=== PATIENT | female | born 1935 | race Caucasian/White ===

== ENCOUNTER 2017-03-16 09:53 | Outpatient (RCR) | payer MEDICARE, OTHER ==
[2016-09-02 13:57] VITALS: Ht 165.1 cm; Wt 74.6 kg
[~2017-03-16] VITALS: Ht 165.1 cm; Wt 74.6 kg
[~2017-03-16 09:53] MED LIST: ALLO-2 PO; ALPH200C2 PO; AMLO-1 PO; AMLO-104 PO; ANAS1TAB35 PO; ASPI-274 PO; BIOT1TAB12 PO; BISA-236 PR; CHOL10005 PO; CHOL100059 PO; CHOL200021 PO; CHRO1000 PO; CLON-327 PO; CLON1PAT23 TD; COM14R INH; CYAN1CRY PO; DILT60CA5 PO; EXE25PT PO; FURO20TA19 PO; GARL1CAP15 PO; GLIM2TAB42 PO; GLIM2TAB43 PO; GLIM4TAB49 PO; GLIP-137 PO; HCTZ25 PO; HYDR-3503 PO; HYDR-389 PO; HYDR50TA35 PO; INSU100C12 SQ; INSU100C14 SQ; LATA2.5D7 OP; LATOD OU; LETR2.5T4 PO; LEVO-85 PO; LIS20 PO; LISI-362 PO; MAGN250T26 PO; MAGN500C10 PO; MAGN800O2 PO; MET500 PO; METO-1 PO; METXL50 PO; MOM PO; NITT TD; OMEG500C5 PO; ONDA4SOL10 PO; ONDA4TAB PO; PANT20TA26 PO; PANT40SU3 PO; PIO15 PO; SITA50TA7 PO; TRI05T TP; UBID100C48 PO; VALS40TA6 PO; VITA-175 PO; VITA1CAP46 PO; VITA1CAP64 PO; WARF1TAB56 PO; WARF1TAB63 PO; WARF2.5T11 PO; WARF2TAB73 PO; WARF2TAB83 PO; ZOLP-1 PO; [UNRECOGNIZED DRUG - CODE] MC; [UNRECOGNIZED DRUG - CODE] PO
[2017-03-16 10:02] VITALS: BP 154/86
[2017-03-16 10:18] LABS: PLATELET COUNT, AUTOMATED 171 K/uL (150-450)
--- NOTE | 2017-03-16 18:15 | ONCOLOGY FOLLOW UP NOTE ---
EVENT DATE: March 16, 2017 DIAGNOSES 1. Stage I left breast cancer. 2. Atrial fibrillation. 3. Hypertension. 4. Gout. 5. History of deep vein thrombosis, right lower extremity x2. 6. Osteopenia. 7. Vitamin D deficiency. CHIEF COMPLAINT Patient is here today for followup of her left breast cancer. ONCOLOGY HISTORY The patient is an 81-year-old female who was found to have an abnormal mammogram during her annual screening mammography. The patient had left breast lumpectomy and sentinel node biopsy done on February 16, 2015. Pathology came back positive for 0.5 cm invasive ductal carcinoma with well-differentiated grade II/III. Four lymph nodes came back negative for metastasis. Lymphovascular invasion not observed. Margins were negative. ER positive 98.4% , IN positive 97.8%. HER2/laurent negative by immunohistochemistry and FISH. Ki- 67 was 0.4%. Tumor was staged as stage IA ([id number]). The patient refused adjuvant radiation therapy. She started adjuvant hormonal therapy with Letrozole 2.5 mg on March 2015. The patient stopped letrozole in July 2015 because of the development of allergic skin rash, felt to be due to medications. The patient started anastrozole 1 mg daily on December 24, 2015 as her insurance will not cover Aromasin. HISTORY OF PRESENT ILLNESS Patient is here today for followup of her left breast cancer. She is doing fine currently, except for easy bruising from the use of Coumadin, but denies any other symptoms. PAST MEDICAL HISTORY 1. Atrial fibrillation. 2. History of DVT of right lower extremity x2. 3. History of congestive heart failure. 4. History of diabetes mellitus. 5. Gout. 6. Hypertension. PAST SURGICAL HISTORY Surgery for fasciitis in 2004, tonsillectomy, hysterectomy with intact ovaries for fibroid, surgery for broken right hip. SOCIAL HISTORY The patient is a . She has two daughters and two sons. She is a homemaker. Denies any abuse of tobacco, alcohol or drugs. FAMILY HISTORY Mother had laryngeal cancer at the age of seventy-four. CURRENT MEDICATIONS 1. Fish oil 500 mg daily. 2. Biotin 1 mg daily. 3. Warfarin 2 mg Sunday//Sunday. 4. Allopurinol 300 mg daily. 5. NovoLog insulin 2 units subcutaneously at lunch. 6. Vitamin D3, 1000 units daily. 7. Vitamin B12, 1000 mcg daily. 8. Protonix 40 mg daily. 9. Amlodipine (Norvasc) 10 mg daily. 11. Coumadin 3 mg Sunday/Sunday/Sunday/Sunday; so she is taking 3 mg for four days per week and 2 mg four three days. 12. Lisinopril 10 mg daily. 13. Insulin, Novolog, 5 units subcutaneously every morning. 14. Lantus insulin 3 units subcutaneously at bedtime. 15. Amaryl 4 mg daily. 16. Lasix 20 mg daily. 17. Xalatan 0.005 % eye drops, each eye, at bedtime. 18. Dulcolax 10 mg suppository p.r.n. ALLERGIES The patient is allergic to KEFLEX and SITAGLIPTIN. REVIEW OF SYSTEMS CONSTITUTIONAL: No appetite or weight change. No fever, chills or sweating. No recent infection. HEENT: Ears: No tinnitus or hearing problem. Nose: No nasal discharge or epistaxis. Throat: No sore throat or mouth ulcers. Eyes: No diplopia or visual changes. RESPIRATORY: She has cough with expectoration. CARDIOVASCULAR: No chest pain, orthopnea, or paroxysmal nocturnal dyspnea (PND) . No edema. No palpitations. GASTROINTESTINAL: She has diarrhea lately from antibiotic therapy. GENITOURINARY: No hematuria or dysuria. MUSCULOSKELETAL: She has achy joints. 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 HEMATOLOGICAL: She bruises easily. SKIN: Her skin rash from letrozole nearly resolved. PSYCHIATRIC: No anxiety or depression. PHYSICAL EXAMINATION VITAL SIGNS: Blood pressure 154/86, pulse 75 per minute, respirations 16 per minute, temperature 97.6, pulse ox 94% on room air. GENERAL: Looks stable. Well-developed, well-nourished, and in no acute distress. HEENT: Head: Atraumatic. No sinus tenderness to palpation. Eyes: No icterus or conjunctivitis. Mouth and throat: No oral thrush or mucositis. NECK: Supple. No cervical or supraclavicular lymphadenopathy. LUNGS: Clear to auscultation and percussion bilaterally. HEART: Regular rate and rhythm. No gallops, murmurs, clicks or rubs. ABDOMEN: Soft and lax. No tenderness. No hepatosplenomegaly. No masses. EXTREMITIES: No cyanosis, clubbing or edema. LYMPHATICS: No peripheral lymphadenopathy. NEUROLOGICAL: Conscious, alert and oriented times three. No focal motor or sensory deficits. PSYCHIATRIC: Mood and affect appear normal. SKIN: There is a skin reaction which is papular in nature. The rash is itchy. DIAGNOSTIC DATA CBC shows a white count of 6.9, hemoglobin 14.6, hematocrit 42.7, platelet count 171,000. ASSESSMENT 1. Stage IA (pT1 pN0 cM0) left breast cancer status post lumpectomy and sentinel lymph node biopsy done February 16, 2015 for 0.5 cm invasive ductal carcinoma grade 2/3 with negative margins. Four lymph nodes were negative for metastasis. ER/IN positive, HER2/laurent negative. Ki-67 was 0.4%. Patient declined adjuvant radiation therapy. She started adjuvant hormonal therapy with Letrozole 2.5 mg on March 25, 2015, which was stopped June 18, 2015 because of the development of severe skin rash and severe itching. Her insurance did not cover for Aromasin and copayment was too high for her, so the patient started treatment with anastrozole on December 24, 2015, but she stopped the treatment because of the development of skin rash. We tried to get her Aromasin by the [employer] systems administrator, but unfortunately the patient was not eligible and she is currently not receiving any adjuvant hormonal therapy. Patient has a history of blood clotting, currently on Coumadin, and she is not a candidate for Tamoxifen because of increased risk of blood clotting. She is doing fine currently. I am planning to continue follow-up. I will see her again in three months with CBC, chem panel and CA 27-29. 2. Atrial fibrillation on Coumadin. 3. Hypertension, on treatment. 4. Gout, on allopurinol. 5. History of deep venous thrombosis, right lower extremity, times two. 6. Osteopenia with T score -1.8. Currently on vitamin D and calcium supplement. 7. Vitamin D deficiency, on vitamin D supplement 3000 units daily. PLAN 1. Continue followup. 2. Continue vitamin D 3000 units daily. 3. Patient to return in three months with CBC, chem panel and CA 27-29. 4. Patient is to contact us for any new concerns or complaints. [facility]
== END 2017-03-30 09:15 | disposition home or self-care (01) ==
LOC: SPU 09:53
PROVIDERS: ATTEND Internal Medicine Hematology
DX: Z85.3 Personal history of malignant neoplasm of breast (principal); I48.91 Unspecified atrial fibrillation; Z79.01 Long term (current) use of anticoagulants; I10 Essential (primary) hypertension; M10.9 Gout, unspecified; Z86.718 Personal history of other venous thrombosis and embolism; M85.80 Other specified disorders of bone density and structure, unspecified site; E55.9 Vitamin D deficiency, unspecified; Z79.899 Other long term (current) drug therapy; R05 Cough; R19.7 Diarrhea, unspecified
CPT/HCPCS: 36415; 85025; 86300; G0463; 82040; 82247; 82310; 82374; 82435; 82565; 82947; 84075; 84132; 84155; 84295; 84450; 84460; 84520; 99212

== ENCOUNTER → 2017-03-23 | Outpatient (CLI) | payer MEDICARE, OTHER ==
[2016-09-02 13:57] VITALS: BMI 27.6
--- NOTE | 2017-03-23 13:42 | RADIOLOGY IMAGING REPORT ---
FACILITY: [facility] - [place] PATIENT NAME: Margarita Zambrano : 1935 MR: [id number] V: [id number] EXAM DATE: ORDERING PHYSICIAN: YULY BLEDSOE TECHNOLOGIST: [place] [facility] [place] Margarita Zambrano : 1935 Visit/Account:[id number] Date of Sevice: 03/23/2017 KIDNEYS EXAMINATION: Renal ultrasound. History: Renal insufficiency, diabetic COMPARISON STUDIES: FINDINGS: Kidneys: Right kidney- right kidney measures 9.3 x 5.3 x 5.4 cm cm Left kidney- left kidney measures 10.7 x 5.9 x 5.5 cm cm Uniform and symmetric blood flow in each kidney by Doppler ultrasound. Hydronephrosis: none The resistive indices are slightly elevated in both kidneys measuring 0.88 on the right 0.84 and the left Bladder: Prevoid volume 120 mL. Post for residual 9 mL. Bilateral ureteral jets were identified Abdominal aorta and IVC: Aorta and IVC are patent by Doppler ultrasound. IMPRESSION: Mildly elevated resistive indices in both kidneys as described above Report Dictated By: Renu Bolton MD at 03/23/2017 1:38 PM Report E-Signed By: Renu Bolton MD at 03/23/2017 1:39 PM WSN:ANISA
== END ==
LOC: US 03:57
PROVIDERS: ATTEND Family Medicine
DX: N28.9 Disorder of kidney and ureter, unspecified (principal)
CPT/HCPCS: 76705

== ENCOUNTER → 2017-04-23 | Outpatient (CLI) | payer MEDICARE, OTHER ==
[2016-09-02 13:57] VITALS: BMI 27.6
[~2017-04-23] MED LIST changes: +WARF1TAB15 PO; -WARF1TAB63 PO
--- NOTE | 2017-04-24 14:07 | RADIOLOGY IMAGING REPORT ---
FACILITY: [facility] - [place] PATIENT NAME: BRETT EASLEY : [id number] MR: [id number] V: [id number] EXAM DATE: ORDERING PHYSICIAN: YULY BLEDSOE TECHNOLOGIST: Estrella Matias PROCEDURE:BILATERAL DIGITAL SCREENING MAMMOGRAM WITH CAD ASSISTED INTERPRETATION & 3D TOMOSYNTHESIS TECHNIQUE: Routine CC & MLO 3D tomographic images were obtained of both breasts. CAD was used. COMPARISON:Dating back to 2013 are available. BREAST DENSITY: There are scattered fibroglandular densities. INDICATIONS:SCREENING FINDINGS: Benign vascular calcifications are once again noted. There is no dominant mass, suspicious cluster of microcalcifications or persistent areas of architectural distortion. DIAGNOSTIC CATEGORY 1--NEGATIVE. RECOMMENDATIONS: ROUTINE MAMMOGRAM AND CLINICAL EVALUATION IN 1 YR IMPRESSION: BIRADS 1: Negative. Dictated by: John Hurt M.D. on 04/24/2017 at 9:21 Transcribed by: MARCIA on 04/24/2017 at 13:46 Approved by: John Hurt M.D. on 04/24/2017 at 14:06 [facility]
== END ==
LOC: MAMO 04-02 02:10
PROVIDERS: ATTEND Family Medicine
DX: Z12.31 Encounter for screening mammogram for malignant neoplasm of breast (principal)
CPT/HCPCS: 77063; 77067

== ENCOUNTER 2017-07-13 12:56 | Outpatient (RCR) | payer MEDICARE, OTHER ==
[2016-09-02 13:57] VITALS: Wt 72.0 kg
[2017-07-13 13:27] LABS: PLATELET COUNT, AUTOMATED 173 K/uL (150-450)
[2017-07-13 13:49] VITALS: BP 124/55
--- NOTE | 2017-07-13 16:21 | ONCOLOGY FOLLOW UP NOTE ---
EVENT DATE: July 13, 2017 DIAGNOSES 1. Stage I left breast cancer. 2. Atrial fibrillation. 3. Hypertension. 4. Gout. 5. History of deep vein thrombosis, right lower extremity x2. 6. Osteopenia. 7. Vitamin D deficiency. CHIEF COMPLAINT Patient is here today for followup of her left breast cancer. ONCOLOGY HISTORY The patient is an 81-year-old female who was found to have an abnormal mammogram during her annual screening mammography. The patient had left breast lumpectomy and sentinel node biopsy done on February 16, 2015. Pathology came back positive for 0.5 cm invasive ductal carcinoma with well-differentiated grade II/III. Four lymph nodes came back negative for metastasis. Lymphovascular invasion not observed. Margins were negative. ER positive 98.4% , SD positive 97.8%. HER2/laurent negative by immunohistochemistry and FISH. Ki- 67 was 0.4%. Tumor was staged as stage IA ([id number]). The patient refused adjuvant radiation therapy. She started adjuvant hormonal therapy with Letrozole 2.5 mg on March 2015. The patient stopped letrozole in July 2015 because of the development of allergic skin rash, felt to be due to medications. The patient started anastrozole 1 mg daily on December 24, 2015 as her insurance will not cover Aromasin. HISTORY OF PRESENT ILLNESS Patient is here today for followup of her left breast cancer. She is doing fine currently, except having musculoskeletal pain in her knees. She has numbness in her hands sometimes. She also bruises easily because of her Coumadin use. PAST MEDICAL HISTORY 1. Atrial fibrillation. 2. History of DVT of right lower extremity x2. 3. History of congestive heart failure. 4. History of diabetes mellitus. 5. Gout. 6. Hypertension. PAST SURGICAL HISTORY Surgery for fasciitis in 2004, tonsillectomy, hysterectomy with intact ovaries for fibroid, surgery for broken right hip. SOCIAL HISTORY The patient is a . She has two daughters and two sons. She is a homemaker. Denies any abuse of tobacco, alcohol or drugs. FAMILY HISTORY Mother had laryngeal cancer at the age of seventy-four. CURRENT MEDICATIONS 1. Fish oil 500 mg daily. 2. Biotin 1 mg daily. 3. Warfarin 2 mg Sunday//Sunday. 4. Allopurinol 300 mg daily. 5. NovoLog insulin 2 units subcutaneously at lunch. 6. Vitamin D3, 1000 units daily. 7. Vitamin B12, 1000 mcg daily. 8. Protonix 40 mg daily. 9. Amlodipine (Norvasc) 10 mg daily. 11. Coumadin 3 mg Sunday/Sunday/Sunday/Sunday; so she is taking 3 mg for four days per week and 2 mg four three days. 12. Lisinopril 10 mg daily. 13. Insulin, Novolog, 5 units subcutaneously every morning. 14. Lantus insulin 3 units subcutaneously at bedtime. 15. Amaryl 4 mg daily. 16. Lasix 20 mg daily. 17. Xalatan 0.005 % eye drops, each eye, at bedtime. 18. Dulcolax 10 mg suppository p.r.n. ALLERGIES 1. KEFLEX. 2. SITAGLIPTIN. REVIEW OF SYSTEMS CONSTITUTIONAL: No appetite or weight change. No fever, chills or sweating. No recent infection. HEENT: Ears: No tinnitus or hearing problem. Nose: No nasal discharge or epistaxis. Throat: No sore throat or mouth ulcers. Eyes: No diplopia or visual changes. RESPIRATORY: She has cough with expectoration. CARDIOVASCULAR: No chest pain, orthopnea, or paroxysmal nocturnal dyspnea (PND) . No edema. No palpitations. GASTROINTESTINAL: She has diarrhea lately from antibiotic therapy. GENITOURINARY: No hematuria or dysuria. MUSCULOSKELETAL: Patient has knee pains. NEUROLOGICAL: She has numbness in her hands. HEMATOLOGICAL: She bruises easily because she is using Coumadin. SKIN: Her skin rash from letrozole nearly resolved. PSYCHIATRIC: No anxiety or depression. PHYSICAL EXAMINATION VITAL SIGNS: Blood pressure 124/55, pulse 73 per minute, respirations 16 per minute, temperature 97.8, pulse ox 96% on room air. GENERAL: Looks stable. Well-developed, well-nourished, and in no acute distress. HEENT: Head: Atraumatic. No sinus tenderness to palpation. Eyes: No icterus or conjunctivitis. Mouth and throat: No oral thrush or mucositis. NECK: Supple. No cervical or supraclavicular lymphadenopathy. LUNGS: Clear to auscultation and percussion bilaterally. HEART: Regular rate and rhythm. No gallops, murmurs, clicks or rubs. ABDOMEN: Soft and lax. No tenderness. No hepatosplenomegaly. No masses. EXTREMITIES: No cyanosis, clubbing or edema. LYMPHATICS: No peripheral lymphadenopathy. NEUROLOGICAL: Conscious, alert and oriented times three. No focal motor or sensory deficits. PSYCHIATRIC: Mood and affect appear normal. SKIN: There is a skin reaction which is papular in nature. The rash is itchy. DIAGNOSTIC DATA CBC shows a white count of 6.7, hemoglobin 13.9, hematocrit 41.1, platelet count 173,000. Chem panel totally normal, except chloride 109, carbon dioxide 16, BUN 77, creatinine 1.5, blood sugar 149. CA 27-29 is pending. ASSESSMENT 1. Stage IA (pT1 pN0 cM0) left breast cancer status post lumpectomy and sentinel lymph node biopsy done February 16, 2015 for 0.5 cm invasive ductal carcinoma grade 2/3 with negative margins. Four lymph nodes were negative for metastasis. ER/SD positive, HER2/laurent negative. Ki-67 was 0.4%. Patient declined adjuvant radiation therapy. She started adjuvant hormonal therapy with Letrozole 2.5 mg on March 25, 2015, which was stopped June 18, 2015 because of the development of severe skin rash and severe itching. Her insurance did not cover for Aromasin and copayment was too high for her, so the patient started treatment with anastrozole on December 24, 2015, but she stopped the treatment because of the development of skin rash. We tried to get her Aromasin by the credentialer, but unfortunately the patient was not eligible and she is currently not receiving any adjuvant hormonal therapy. Patient currently on Coumadin for blood clotting and that is why she is not a candidate for Tamoxifen because of the increased risk of blood clotting. She is doing fine currently without any problem. I am planning to see her again in three months with CBC, chem panel and CA 27-29. 2. Atrial fibrillation on Coumadin. 3. Hypertension, on treatment. 4. Gout, on allopurinol. 5. History of deep venous thrombosis, right lower extremity, times two. 6. Osteopenia with T score -1.8. Currently on vitamin D and calcium supplement. 7. Vitamin D deficiency, on vitamin D supplement 3000 units daily. PLAN 1. Continue followup. 2. Continue vitamin D 3000 units daily. 3. Patient to return in three months with CBC, chem panel and CA 27-29. 4. Patient is to contact us for any new concern or complaints. [facility]
== END 2017-10-05 09:33 | disposition home or self-care (01) ==
LOC: SPU 12:56
PROVIDERS: ATTEND Internal Medicine Hematology
DX: C50.912 Malignant neoplasm of unspecified site of left female breast (principal); I48.91 Unspecified atrial fibrillation; Z79.01 Long term (current) use of anticoagulants; I10 Essential (primary) hypertension; M10.9 Gout, unspecified; Z86.718 Personal history of other venous thrombosis and embolism; M85.80 Other specified disorders of bone density and structure, unspecified site; E55.9 Vitamin D deficiency, unspecified; Z79.899 Other long term (current) drug therapy; E11.9 Type 2 diabetes mellitus without complications; Z79.4 Long term (current) use of insulin; R05 Cough; R19.7 Diarrhea, unspecified
CPT/HCPCS: 36415; 85025; 86300; G0463; 82040; 82247; 82310; 82374; 82435; 82565; 82947; 84075; 84132; 84155; 84295; 84450; 84460; 84520; 99212

== ENCOUNTER 2017-10-18 09:25 | Outpatient (RCR) | payer MEDICARE, OTHER ==
[2016-09-02 13:57] VITALS: Wt 73.3 kg
[~2017-10-18 09:25] MED LIST changes: +ANAS1TAB12 PO; -ANAS1TAB35 PO
[2017-10-18 09:36] VITALS: BP 143/64
[2017-10-18 09:51] LABS: PLATELET COUNT, AUTOMATED 157 K/uL (150-450)
--- NOTE | 2017-10-18 12:06 | EL-TAR[facility] ONCOLOGY NOTE ---
EVENT DATE: October 18, 2017 DIAGNOSES 1. Stage I left breast cancer. 2. Atrial fibrillation. 3. Hypertension. 4. Gout. 5. History of deep vein thrombosis, right lower extremity x2. 6. Osteopenia. 7. Vitamin D deficiency. CHIEF COMPLAINT Patient is here today for followup of her left breast cancer. ONCOLOGY HISTORY The patient is an 82-year-old female who was found to have an abnormal mammogram during her annual screening mammography. The patient had left breast lumpectomy and sentinel node biopsy done on February 16, 2015. Pathology came back positive for 0.5 cm invasive ductal carcinoma with well-differentiated grade II/III. Four lymph nodes came back negative for metastasis. Lymphovascular invasion not observed. Margins were negative. ER positive 98.4% , MI positive 97.8%. HER2/laurent negative by immunohistochemistry and FISH. Ki- 67 was 0.4%. Tumor was staged as stage IA ([id number]). The patient refused adjuvant radiation therapy. She started adjuvant hormonal therapy with Letrozole 2.5 mg on March 2015. The patient stopped letrozole in July 2015 because of the development of allergic skin rash, felt to be due to medications. The patient started anastrozole 1 mg daily on December 24, 2015 as her insurance will not cover Aromasin. HISTORY OF PRESENT ILLNESS Patient is here today for followup of her left breast cancer. She is doing fine currently except having right knee pain from arthritis. She has some tingling in the fingers sometimes. She bruises easily but she is on Coumadin. PAST MEDICAL HISTORY 1. Atrial fibrillation. 2. History of DVT of right lower extremity x2. 3. History of congestive heart failure. 4. History of diabetes mellitus. 5. Gout. 6. Hypertension. PAST SURGICAL HISTORY Surgery for fasciitis in 2004, tonsillectomy, hysterectomy with intact ovaries for fibroid, surgery for broken right hip. SOCIAL HISTORY The patient is a . She has two daughters and two sons. She is a homemaker. Denies any abuse of tobacco, alcohol or drugs. FAMILY HISTORY Mother had laryngeal cancer at the age of seventy-four. CURRENT MEDICATIONS 1. Fish oil 500 mg daily. 2. Biotin 1 mg daily. 3. Warfarin 2 mg Sunday//Sunday. 4. Allopurinol 300 mg daily. 5. NovoLog insulin 2 units subcutaneously at lunch. 6. Vitamin D3, 1000 units daily. 7. Vitamin B12, 1000 mcg daily. 8. Protonix 40 mg daily. 9. Amlodipine (Norvasc) 10 mg daily. 11. Coumadin 3 mg Sunday/Sunday/Sunday/Sunday; so she is taking 3 mg for four days per week and 2 mg four three days. 12. Lisinopril 10 mg daily. 13. Insulin, Novolog, 5 units subcutaneously every morning. 14. Lantus insulin 3 units subcutaneously at bedtime. 15. Amaryl 4 mg daily. 16. Lasix 20 mg daily. 17. Xalatan 0.005 % eye drops, each eye, at bedtime. 18. Dulcolax 10 mg suppository p.r.n. ALLERGIES 1. KEFLEX. 2. SITAGLIPTIN. REVIEW OF SYSTEMS CONSTITUTIONAL: No appetite or weight change. No fever, chills or sweating. No recent infection. HEENT: Ears: No tinnitus or hearing problem. Nose: No nasal discharge or epistaxis. Throat: No sore throat or mouth ulcers. Eyes: No diplopia or visual changes. RESPIRATORY: No shortness of breath. No cough, expectoration or hemoptysis. CARDIOVASCULAR: No chest pain, orthopnea, or paroxysmal nocturnal dyspnea (PND) . No edema. No palpitations. GASTROINTESTINAL: No nausea or vomiting. No diarrhea or constipation. No change in bowel movements. No heartburn or swallowing difficulties. No abdominal pain. No jaundice. No hematemesis, melena or rectal bleeding. GENITOURINARY: No hematuria or dysuria. MUSCULOSKELETAL: She has pain in the right knee from arthritis. NEUROLOGICAL: She has tingling in the fingers occasionally. HEMATOLOGIC/LYMPHATIC: She bruises easily but she is using Coumadin. SKIN: No skin rash or lumps. PSYCHIATRIC: No anxiety or depression. PHYSICAL EXAMINATION GENERAL: Looks stable. Well-developed, well-nourished, and in no acute distress. VITAL SIGNS: Blood pressure 143/64, pulse 88 per minute, respirations 16 per minute, temperature 97.8, pulse oximetry 93% on room air. HEENT: Head: Atraumatic. No sinus tenderness to palpation. Eyes: No icterus or conjunctivitis. Mouth and throat: No oral thrush or mucositis. NECK: Supple. No cervical or supraclavicular lymphadenopathy. LUNGS: Clear to auscultation and percussion bilaterally. HEART: Regular rate and rhythm. No gallops, murmurs, clicks or rubs. ABDOMEN: Soft and lax. No tenderness. No hepatosplenomegaly. No masses. EXTREMITIES: No cyanosis, clubbing or edema. LYMPHATICS: No peripheral lymphadenopathy. NEUROLOGICAL: Conscious, alert and oriented times three. No focal motor or sensory deficits. PSYCHIATRIC: Mood and affect appear normal. SKIN: No skin rash, bruise or purpuric eruption. DIAGNOSTIC DATA CBC shows a white count of 7.4, hemoglobin 14.6, hematocrit 41.9, platelet count 157,000. Chem panel and CA 27-29 are pending. ASSESSMENT 1. Stage IA (pT1 pN0 cM0) left breast cancer status post lumpectomy and sentinel lymph node biopsy done February 16, 2015 for 0.5 cm invasive ductal carcinoma grade 2/3 with negative margins. Four lymph nodes were negative for metastasis. ER/MI positive, HER2/laurent negative. Ki-67 was 0.4%. Patient declined adjuvant radiation therapy. She started adjuvant hormonal therapy with Letrozole 2.5 mg on March 25, 2015, which was stopped June 18, 2015 because of the development of severe skin rash and severe itching. Her insurance did not cover for Aromasin and copayment was too high for her, so the patient started treatment with anastrozole on December 24, 2015, but she stopped the treatment because of the development of skin rash. We tried to get her Aromasin by the branch account executive, but unfortunately the patient was not eligible and she is currently not receiving any adjuvant hormonal therapy. She is also using Coumadin for blood clotting and Tamoxifen is not indicated in her case for this reason. She is currently doing very well. I am planning to continue follow up. I will see her in three months with CBC, chem panel and CA 27-29. After the next visit, we will start to see her every four months as the patient will complete three years since her diagnosis next visit. 2. Atrial fibrillation, on Coumadin. 3. Hypertension, on treatment. 4. Gout, on allopurinol. 5. History of deep venous thrombosis of right lower extremity x2, on Coumadin. 6. Osteopenia with T score -1.8. Currently on vitamin D and calcium supplement. 7. Vitamin D deficiency, on vitamin D supplement 3000 units daily. PLAN 1. Continue followup. 2. Continue vitamin D 3000 units daily. 3. Patient to return in three months with CBC, chem panel and CA 27-29. 4. Patient is to contact us for any new concern or complaints. [facility]
== END 2018-01-15 ==
LOC: SPU 09:25
PROVIDERS: ATTEND Internal Medicine Hematology
DX: C50.912 Malignant neoplasm of unspecified site of left female breast (principal); I48.91 Unspecified atrial fibrillation; Z79.01 Long term (current) use of anticoagulants; I10 Essential (primary) hypertension; M10.9 Gout, unspecified; Z86.718 Personal history of other venous thrombosis and embolism; M85.80 Other specified disorders of bone density and structure, unspecified site; E55.9 Vitamin D deficiency, unspecified; Z79.899 Other long term (current) drug therapy; E11.9 Type 2 diabetes mellitus without complications; Z79.4 Long term (current) use of insulin; R05 Cough; R19.7 Diarrhea, unspecified
CPT/HCPCS: 36415; 85025; 86300; G0463; 82040; 82247; 82310; 82374; 82435; 82565; 82947; 84075; 84132; 84155; 84295; 84450; 84460; 84520; 99212

== ENCOUNTER 2018-01-17 10:30 | Outpatient (RCR) | payer MEDICARE, OTHER ==
[2016-09-02 13:57] VITALS: BMI 27.6
[2018-01-17 10:55] LABS: PLATELET COUNT, AUTOMATED 193 K/uL (150-450)
[2018-01-17 11:04] VITALS: BP 164/86
[2018-01-17 11:42] VITALS: BP 164/86
--- NOTE | 2018-01-18 21:18 | ONCOLOGY FOLLOW UP NOTE ---
EVENT DATE: January 17, 2018 CHIEF COMPLAINT Follow up for stage IA breast cancer. HISTORY OF PRESENT ILLNESS Patient is an 82-year-old female who was seen today in followup for stage IA breast cancer. Unfortunately, she was unable to tolerate the aromatase inhibitors as she had significant rash with both LETROZOLE and ANASTROZOLE. Exemestane was not covered by her insurance. Thankfully, she has had no recurrence of disease. She generally feels well. She does have some right knee pain, but defers going for a knee replacement. She received her flu shot in November. She will follow up with Dr. Mathews next week. She denies any other significant complaints. MEDICAL HISTORY 1. Atrial fibrillation. 2. History of DVT of right lower extremity x2. 3. History of congestive heart failure. 4. Type 2 diabetes. 5. Gout. 6. Hypertension. 7. Chronic renal insufficiency. SURGICAL HISTORY 1. Left lumpectomy, February 2015. 2. Surgery for fasciitis, 2004. 3. Tonsillectomy. 4. Hysterectomy with intact ovaries for fibroid. 5. ORIF of right hip. SOCIAL HISTORY The patient is a . She has two daughters and two sons. She is a homemaker. Denies any abuse of tobacco, alcohol, or drugs. FAMILY HISTORY Mother had laryngeal cancer at the age of 74. MEDICATIONS 1. Warfarin 2 mg (managed per Dr. Mathews). 2. Magnesium oxide 500 mg daily. 3. Vitamin B complex daily. 4. Vitamin D3, 3000 International Units daily. 5. Lisinopril 10 mg daily. 6. Furosemide 20 mg daily. 7. Glimepiride 4 mg daily (patient is taking this p.r.n.). 8. Xalatan 0.005% eye drops. ALLERGIES 1. KEFLEX. 2. SITAGLIPTIN. REVIEW OF SYSTEMS A 12-point review of systems is performed and is negative except as stated above. PHYSICAL EXAMINATION VITAL SIGNS: Blood pressure 164/86, pulse 96, respirations 18, temp 97.8, O2 sat 91%. GENERAL: Patient is a well-developed, well-nourished female in no acute distress. HEAD: Normocephalic, atraumatic. EYES: Sclerae anicteric. MOUTH: Moist mucous membranes without lesions. NECK: Supple. No masses. LYMPHATICS: No palpable adenopathy. BREASTS: Status post left lumpectomy with well-healed incision. No evidence of recurrence. Right breast is without masses. LUNGS: Clear bilaterally. CARDIOVASCULAR: Heart rate slightly irregular with a grade 2 murmur. ABDOMEN: Soft, nontender, with active bowel sounds. EXTREMITIES: No edema. NEUROLOGIC: Nonfocal. LABORATORIES CBC today reveals a WBC of 7.0, hemoglobin 15.3, hematocrit 46.9, platelets 193,000. CMP is within normal limits except for a BUN of 75, creatinine 1.6, random glucose 198. IMPRESSION AND PLAN The patient is an 82-year-old female with: 1. Stage IA left breast cancer, status post left lumpectomy. Unable to tolerate AROMATASE INHIBITOR therapy due to significant rash. No signs or symptoms of disease recurrence. Tamoxifen was not prescribed as she has had issues with blood clotting. 2. Atrial fibrillation. Heart rate is slightly irregular today. She continues on Coumadin and tells me that this has been well controlled. 3. Hypertension. Continue lisinopril and Lasix. 4. Vitamin D deficiency. Continue vitamin D3 3000 International Units daily. 5. Type 2 diabetes. Patient relates that she has not been taking her glimepiride on a regular basis. She previously was on insulin, but is not on this any longer. She will follow up with Dr. Mathews next week. 6. Breast surveillance. Bilateral mammogram on 04/23/17 was BIRADS category 1. This will be repeated in April 2018. Patient relates that Dr. Mathews will order this. 7. Chronic renal insufficiency. Reviewed labs. BUN and creatinine today were 75 and 1.6 respectively. On review, these have been stable over the past two years. 8. Follow up with Dr. Olmos in six months for continued care. CBC, CMP, and CA27.29 will be repeated at that time. cc: Yoli BURKS
== END 2018-02-11 09:32 | disposition home or self-care (01) ==
LOC: SPU 10:30
PROVIDERS: ATTEND Internal Medicine Hematology
DX: C50.912 Malignant neoplasm of unspecified site of left female breast (principal); I48.91 Unspecified atrial fibrillation; Z79.01 Long term (current) use of anticoagulants; I10 Essential (primary) hypertension; M10.9 Gout, unspecified; Z86.718 Personal history of other venous thrombosis and embolism; M85.80 Other specified disorders of bone density and structure, unspecified site; E55.9 Vitamin D deficiency, unspecified; Z79.899 Other long term (current) drug therapy; E11.9 Type 2 diabetes mellitus without complications; Z79.4 Long term (current) use of insulin; R05 Cough; R19.7 Diarrhea, unspecified
CPT/HCPCS: 36415; 85025; 86300; G0463; 82040; 82247; 82310; 82374; 82435; 82565; 82947; 84075; 84132; 84155; 84295; 84450; 84460; 84520; 99212

== ENCOUNTER 2018-05-08 20:52 | Emergency (ER) | payer MEDICARE, OTHER ==
[2016-09-02 13:57] VITALS: Wt 74.0 kg
[2018-05-08] MEDS ORDERED: GLIM4TAB50 PO (21:37)
[2018-05-08] MEDS ORDERED: ALB6.7R INH (21:39)
--- NOTE | 2018-05-08 21:45 | ER Report ---
History and Physical Time Seen By MD: 21:44 Hx. of Stated Complaint: fell at approximately 10pm last night. called someone at 6:30pm tonight about it. has been laying on floor most of that time. family states she has not anything to eat or drink in that time, has a lot of bruises. has a lot of redness to right hand she thinks is gout (DEB PACKER MD) HPI/ROS CHIEF COMPLAINT: Fall, arm and knee pain HISTORY OF PRESENT ILLNESS: This is an 82-year-old female. Yesterday, she been having a few days of redness and inflammation in the right arm. She was sitting on the toilet last night or early in the morning and was unable to get up from the toilet because of the pain and weakness in her arm. She ended up "diving "off the toilet onto the floor and then ended up on the floor for most of the day today. She finally was able to call family who came to get her. She has some pain in the right knee from the fall. Still has pain in the right wrist and forearm area with some redness and warmth of the skin in these areas. Denies any fevers or chills. She has no other pain and did not hit her head and has no neck or back pain. She has not had much to drink and is feeling very dehydrated at this time. (DEB PACKER MD) Allergies: Coded Allergies: Cephalexin Monohydrate (Verified Allergy, Unknown, 05/08/18) sitagliptin phosphate (Verified Adverse Reaction, Intermediate, ITCHING, 05/08/18) dizziness Home Meds Active Scripts Warfarin Sodium (JANTOVEN) 2 Mg Tablet, 2 MG PO DAILY@1300, #30 TAB Prov:MILLI,BRITTANY CHANG 09/05/16 Reported Medications Albuterol Sulfate (PROVENTIL HFA) 6.7 Gm Inh, 1-2 PUFF INH 3-4XD, INH 05/08/18 Glimepiride (GLIMEPIRIDE) 4 Mg Tablet, 4 MG PO QDAY 05/08/18 Magnesium Oxide (MAGNESIUM) 500 Mg Capsule, 500 MG PO DAILY, CAPSULE 09/14/16 Vitamin B Complex (B COMPLEX) 1 Each Tablet, 1 EACH PO DAILY 09/14/16 Cholecalciferol (Vitamin D3) (VITAMIN D3) 1,000 Unit Tablet, 4000 UNIT PO, TAB 09/14/16 Lisinopril (LISINOPRIL) 10 Mg Tablet, 10 MG PO QDAY, TAB 09/14/16 Furosemide (LASIX) 20 Mg Tablet, 40 MG PO QDAY, #3 0 Refills TAKE ONE tablet daily 08/29/12 Reviewed Nurses Notes: Yes (DEB PACKER MD) Hx Smoking: No Smoking Status: Never Smoker Exposure to Second Hand Smoke?: Yes Hx Substance Use Disorder: No Hx Alcohol Use: No (DEB PACEKR MD) Constitutional Vital Sign - Last 24 Hours 05/08/18 05/08/18 05/08/18 05/08/18 21:30 21:31 21:32 21:37 Temp 98.3 Pulse 79 ??? 74 Resp 16 B/P (MAP) 146/94 146/94 (111) Pulse Ox 88 92 O2 Delivery Room Air 05/08/18 05/08/18 05/08/18 05/08/18 21:42 21:45 21:47 21:52 Pulse 76 73 79 B/P (MAP) 134/63 (86) Pulse Ox 92 92 93 05/08/18 05/08/18 05/08/18 05/08/18 21:57 22:00 22:02 22:07 Pulse 74 76 82 B/P (MAP) 123/74 (90) Pulse Ox 93 93 93 05/08/18 05/08/18 05/08/18 05/08/18 22:12 22:15 22:17 22:22 Pulse 82 75 77 B/P (MAP) 105/66 (79) Pulse Ox 91 93 93 05/08/18 05/08/18 05/08/18 05/08/18 22:42 22:47 22:52 23:07 Pulse 78 76 75 73 Pulse Ox 93 93 92 90 05/08/18 05/08/18 05/08/18 05/08/18 23:22 23:37 23:52 23:57 Pulse 74 72 76 72 Pulse Ox 89 89 91 93 05/09/18 05/09/18 05/09/18 05/09/18 00:12 00:42 00:47 00:52 Pulse 75 97 79 ??? Pulse Ox 91 92 92 05/09/18 05/09/18 05/09/18 05/09/18 01:07 01:22 01:52 02:22 Pulse ? 05/09/18 05/09/18 05/09/18 05/09/18 02:32 02:37 02:50 02:55 Pulse ? B/P (MAP) 102/70 (81) 05/09/18 05/09/18 05/09/18 05/09/18 03:00 03:10 03:15 03:25 Pulse ? B/P (MAP) 126/70 (88) 118/67 (84) 05/09/18 05/09/18 05/09/18 05/09/18 03:30 03:45 04:00 04:05 Pulse ??? B/P (MAP) 121/53 (75) 133/59 (83) 103/78 (86) 05/09/18 05/09/18 05/09/18 05/09/18 04:15 04:20 04:30 04:35 Pulse ? B/P (MAP) 128/72 (90) 121/66 (84) 05/09/18 05/09/18 05/09/18 05/09/18 04:45 04:50 05:00 05:15 Pulse ??? B/P (MAP) 119/59 (79) 120/59 (79) 121/56 (77) 05/09/18 05/09/18 05/09/18 05/09/18 05:20 05:30 05:35 05:45 Pulse ? B/P (MAP) 120/74 (89) 119/71 (87) 05/09/18 05/09/18 05/09/18 05/09/18 06:00 06:15 06:30 06:45 B/P (MAP) 120/75 (90) 124/62 (82) 129/73 (91) 120/59 (79) 05/09/18 05/09/18 05/09/18 05/09/18 07:00 07:15 07:30 07:45 B/P (MAP) 127/59 (81) 116/67 (83) 126/69 (88) 121/63 (82) 05/09/18 05/09/18 05/09/18 05/09/18 08:00 08:15 08:30 08:45 B/P (MAP) 117/64 (81) 114/93 (100) 114/65 (81) 120/68 (85) Intake and Output0 05/08/18 05/08/18 05/09/18 15:00 23:00 07:00 Intake Total 2000 ml Balance 2000 ml (RIMA GALLOWAY MD) Physical Exam General Appearance: The patient is alert. No acute distress. She is smiling and joking around with us in the ER tonight. Eyes: Pupils are equal, round. No pallor, injection or icterus. ENT: Mucous membranes are dry. Posterior oropharynx and oral mucosa is normal. Neck: Supple and non tender. Respiratory: Lungs are clear to auscultation. Cardiovascular: Regular rate and rhythm. No murmurs, gallops or rubs. Normal capillary refill. Does have some lower extremity trace edema bilateral. Gastrointestinal: Abdomen is soft and non tender. Nondistended. Normal active bowel sounds. No costovertebral angle tenderness with percussion. Neurological: Alert and oriented x3. Generalized weakness but no focal neurologic deficits noted. Skin: Warm and dry. Her right wrist and forearm up to the elbow has pain. There is redness and warmth at the wrist and also redness and warmth at the elbow. Musculoskeletal: She has some pain diffusely throughout the right knee. No pain in the spine or back. DIFFERENTIAL DIAGNOSIS: After history and physical exam, differential diagnosis was considered for patient who fell off the toilet, questionable if there is injury in the knee or not. Also with redness and warmth in the wrist and elbow of the right arm, concerning for possible gout versus infection. Also worry about prolonged time on the floor and dehydration with rhabdomyolysis. (RUSTDEB MD) Medical Decision Making Data Points Result Diagram: 05/09/18 0619 05/09/18 0619 Laboratory Hematology Test 05/08/18 22:39 05/08/18 22:54 05/09/18 06:19 Urine Color Yellow Urine Clarity Slightly-cloudy Urine pH 5.0 pH (4.8-9.5) Urine Specific [place]ee[place] 1.021 Urine Protein 100 mg/dL (NEGATIVE) Urine Glucose (UA) Negative mg/dL (NEGATIVE) Urine Ketones Negative mg/dL (NEGATIVE) Urine Blood Moderate (NEGATIVE) Urine Nitrite Negative (NEGATIVE) Urine Bilirubin Negative (NEGATIVE) Urine Urobilinogen Negative mg/dL (0.2-1.9) Urine Leukocyte Esterase Negative (NEGATIVE) Urine RBC 4 /HPF (0-2/HPF) Urine WBC 1 /HPF (0-5/HPF) Urine Squamous Epithelial Cells Many /LPF (</=FEW) Urine Bacteria Negative /HPF (NONE-FEW) Urine Hyaline Casts Few /LPF (NONE-FEW) Urine Mucus None /HPF (NONE-FEW) Erythrocyte Sedimentation Rate 80 mm/HOUR (0-30) Prothrombin Time 20.9 seconds (12.0-14.4) Prothromb Time International Ratio 1.78 Uric Acid 9.6 mg/dl (2.5-7.5) Red Blood Count 4.64 M/uL (4.17-5.56) Mean Corpuscular Volume 85.9 fL (80.0-96.0) Mean Corpuscular Hemoglobin 28.2 pg (26.0-33.0) Mean Corpuscular Hemoglobin Concent 32.8 g/dL (32.0-36.0) Red Cell Distribution Width 15.0 % (11.5-14.5) Mean Platelet Volume 7.7 fL (7.2-11.1) Neutrophils (%) (Auto) 94.7 % (39.4-72.5) Lymphocytes (%) (Auto) 3.2 % (17.6-49.6) Monocytes (%) (Auto) 1.8 % (4.1-12.4) Eosinophils (%) (Auto) 0.1 % (0.4-6.7) Basophils (%) (Auto) 0.2 % (0.3-1.4) Nucleated RBC Relative Count (auto) 0.0 /100WBC Neutrophils # (Auto) 9.4 K/uL (2.0-7.4) Lymphocytes # (Auto) 0.3 K/uL (1.3-3.6) Monocytes # (Auto) 0.2 K/uL (0.3-1.0) Eosinophils # (Auto) 0.0 K/uL (0.0-0.5) Basophils # (Auto) 0.0 K/uL (0.0-0.1) Nucleated RBC Absolute Count (auto) 0.00 K/uL Sodium Level 137 mmol/L (137-145) Potassium Level 4.7 mmol/L (3.5-5.0) Chloride Level 110 mmol/L (98-107) Carbon Dioxide Level 15 mmol/L (22-31) Blood Urea Nitrogen 60 mg/dl (7-18) Creatinine 1.30 mg/dl (0.52-1.04) Glomerular Filtration Rate Calc 39.0 Random Glucose 173 mg/dl (75-110) Calcium Level 8.3 mg/dl (8.4-10.2) Total Bilirubin 1.5 mg/dl (0.2-1.3) Aspartate Amino Transf (AST/SGOT) 80 U/L (0-35) Alanine Aminotransferase (ALT/SGPT) 43 U/L (0-56) Alkaline Phosphatase 83 U/L (0-126) Total Creatine Kinase 768 U/L (30-135) Total Protein 5.7 g/dl (6.3-8.2) Albumin 3.1 g/dl (3.5-5.0) Chemistry Test 05/08/18 22:39 05/08/18 22:54 05/09/18 06:19 Urine Color Yellow Urine Clarity Slightly-cloudy Urine pH 5.0 pH (4.8-9.5) Urine Specific Peebles 1.021 Urine Protein 100 mg/dL (NEGATIVE) Urine Glucose (UA) Negative mg/dL (NEGATIVE) Urine Ketones Negative mg/dL (NEGATIVE) Urine Blood Moderate (NEGATIVE) Urine Nitrite Negative (NEGATIVE) Urine Bilirubin Negative (NEGATIVE) Urine Urobilinogen Negative mg/dL (0.2-1.9) Urine Leukocyte Esterase Negative (NEGATIVE) Urine RBC 4 /HPF (0-2/HPF) Urine WBC 1 /HPF (0-5/HPF) Urine Squamous Epithelial Cells Many /LPF (</=FEW) Urine Bacteria Negative /HPF (NONE-FEW) Urine Hyaline Casts Few /LPF (NONE-FEW) Urine Mucus None /HPF (NONE-FEW) Erythrocyte Sedimentation Rate 80 mm/HOUR (0-30) Prothrombin Time 20.9 seconds (12.0-14.4) Prothromb Time International Ratio 1.78 Uric Acid 9.6 mg/dl (2.5-7.5) White Blood Count 10.0 k/uL (4.5-11.0) Red Blood Count 4.64 M/uL (4.17-5.56) Hemoglobin 13.1 g/dL (12.0-16.0) Hematocrit 39.9 % (34.0-47.0) Mean Corpuscular Volume 85.9 fL (80.0-96.0) Mean Corpuscular Hemoglobin 28.2 pg (26.0-33.0) Mean Corpuscular Hemoglobin Concent 32.8 g/dL (32.0-36.0) Red Cell Distribution Width 15.0 % (11.5-14.5) Platelet Count 188 K/uL (150-450) Mean Platelet Volume 7.7 fL (7.2-11.1) Neutrophils (%) (Auto) 94.7 % (39.4-72.5) Lymphocytes (%) (Auto) 3.2 % (17.6-49.6) Monocytes (%) (Auto) 1.8 % (4.1-12.4) Eosinophils (%) (Auto) 0.1 % (0.4-6.7) Basophils (%) (Auto) 0.2 % (0.3-1.4) Nucleated RBC Relative Count (auto) 0.0 /100WBC Neutrophils # (Auto) 9.4 K/uL (2.0-7.4) Lymphocytes # (Auto) 0.3 K/uL (1.3-3.6) Monocytes # (Auto) 0.2 K/uL (0.3-1.0) Eosinophils # (Auto) 0.0 K/uL (0.0-0.5) Basophils # (Auto) 0.0 K/uL (0.0-0.1) Nucleated RBC Absolute Count (auto) 0.00 K/uL Glomerular Filtration Rate Calc 39.0 Calcium Level 8.3 mg/dl (8.4-10.2) Total Bilirubin 1.5 mg/dl (0.2-1.3) Aspartate Amino Transf (AST/SGOT) 80 U/L (0-35) Alanine Aminotransferase (ALT/SGPT) 43 U/L (0-56) Alkaline Phosphatase 83 U/L (0-126) Total Creatine Kinase 768 U/L (30-135) Total Protein 5.7 g/dl (6.3-8.2) Albumin 3.1 g/dl (3.5-5.0) Coagulation Test 05/08/18 22:54 Prothrombin Time 20.9 seconds Prothromb Time International Ratio 1.78 Urinalysis Test 05/08/18 22:39 Urine Color Yellow Urine Clarity Slightly-cloudy Urine pH 5.0 pH (4.8-9.5) Urine Specific [place]ee[place] 1.021 Urine Protein 100 mg/dL (NEGATIVE) Urine Glucose (UA) Negative mg/dL (NEGATIVE) Urine Ketones Negative mg/dL (NEGATIVE) Urine Blood Moderate (NEGATIVE) Urine Nitrite Negative (NEGATIVE) Urine Bilirubin Negative (NEGATIVE) Urine Urobilinogen Negative mg/dL (0.2-1.9) Urine Leukocyte Esterase Negative (NEGATIVE) Urine RBC 4 /HPF (0-2/HPF) Urine WBC 1 /HPF (0-5/HPF) Urine Squamous Epithelial Cells Many /LPF (</=FEW) Urine Bacteria Negative /HPF (NONE-FEW) Urine Hyaline Casts Few /LPF (NONE-FEW) Urine Mucus None /HPF (NONE-FEW) (RIMA GALLOWAY MD) ED Course/Re-evaluation Clinical Indication for ER IV: Hydration, IV Access Decision to Disposition Date: May 08, 2018 Decision to Disposition Time: 23:52 (DEB PACKER MD) ED Course 05/09/2018 9:25:54 am physical therapy assessment was done. Please see their report for details. I observed the patient ambulating with walker with no wendy tance. The patient is able to be discharged home with close follow-up and home health. Recommend a commode at the bedside along with 4 point walker. Decision to Disposition Date: May 09, 2018 Decision to Disposition Time: 10:00 (RIMA GALLOWAY MD) Depart Departure Latest Vital Signs Vital Signs Date Time Temp Pulse Resp B/P (MAP) Pulse Ox O2 Delivery O2 Flow Rate FiO2 05/09/18 08:45 120/68 (85) 05/09/18 05:35 ??? 05/09/18 00:52 92 05/08/18 21:30 98.3 16 Room Air (RIMA GALLOWAY MD) Impression: Primary Impression: Ambulatory dysfunction Condition: Improved Disposition: HOME OR SELF-CARE Referrals: YULY BLEDSOE DO (PCP) 2 Days for reassessment of ambulation Patient Instructions: Fall Prevention (ED), How to Choose and Use a Walker (GEN) DEB PACKER MD May 08, 2018 21:45 RIMA GALLOWAY MD May 09, 2018 09:28
[2018-05-08] MEDS ORDERED: NS(*) 0.9% 1000 ML BAG 1,000 ML IV ONE (22:25)
[2018-05-08 23:12] LABS: PLATELET COUNT, AUTOMATED 222 K/uL (150-450)
[2018-05-09] MEDS ORDERED: predniSONE 20 MG TAB PO ONE (00:35)
[2018-05-09] MEDS ORDERED: NS(*) 0.9% 1000 ML BAG 1,000 ML IV ONE (00:35)
[2018-05-09] MEDS ORDERED: AMOX/CLAV 875 MG TAB PO ONE (00:35)
[2018-05-09 01:53] LABS: INR 1.78
--- NOTE | 2018-05-09 03:28 | RADIOLOGY IMAGING REPORT ---
FACILITY: [facility] - [place] PATIENT NAME: Margarita Zambrano : 1935 MR: [id number] V: [id number] EXAM DATE: ORDERING PHYSICIAN: DEB PACKER TECHNOLOGIST: Location: [facility] - [place] Patient: Margarita Zambrano : 1935 Visit/Account:[id number] Date of Sevice: 05/09/2018 INDICATION: Fall, right knee pain. EXAM DATE: 05/09/2018 1:37 AM COMPARISON: None. FINDINGS: 3 views right knee. Mineralization is low. No apparent acute alignment abnormality or fracture. Mult ifocal osteoarthrosis that is mild at the lateral compartment, moderate of the medial compartment and moderate at the patellofemoral joint greatest along the medial facet. Probable joint effusion. Vas cular calcifications. IMPRESSION: Probable joint effusion, multifocal osteoarthrosis and low bone mineralization in the ri ght knee with no apparent acute osseous abnormality. Report Dictated By: Talha Sy MD at 05/09/2018 3:20 AM Report E-Signed By: Talha Sy MD at 05/09/2018 3:23 AM WSN:[id number]
--- NOTE | 2018-05-09 03:42 | RADIOLOGY IMAGING REPORT ---
FACILITY: [facility] PATIENT NAME: Margarita Zambrano : 1935 MR: [id number] V: [id number] EXAM DATE: ORDERING PHYSICIAN: DEB PACKER TECHNOLOGIST: Location: [facility] - [place] Patient: Margarita Zambrano : 1935 Visit/Account:[id number] Date of Sevice: 05/09/2018 KNEE 4 VIEW LEFT COMPARISONS: None. ADDITIONAL PERTINENT HISTORY: Fall with knee pain FINDINGS: Osseous structures: Subchondral sclerosis and osteophyte formation involving the medial compartment o f the right knee. No bony fractures. Joint spaces: Joint space narrowing involving the medial compartment of the left knee. Surrounding soft tissues: Atherosclerotic disease about the left knee. IMPRESSION: 1. Osteoarthritic changes involving the left knee. 2. No acute appearing bony abnormalities. Report Dictated By: Gabo Mosher MD at 05/09/2018 3:34 AM Report E-Signed By: Gabo Mosher MD at 05/09/2018 3:37 AM WSN:[id number]
[2018-05-09 06:33] LABS: PLATELET COUNT, AUTOMATED 188 K/uL (150-450)
[2018-05-09 08:45] VITALS: BP 120/68
--- NOTE | 2018-05-09 08:50 | NUR ---
Physical Therapy Impression PT eval complete in ED. Pt's main complaint is R) wrist pain. PT applied AVA wrap to wrist to aid in pain management. Pt requires Anjelica for bed mobility supine to sit, she reports that she plans to sleep in recliner at home. With verbal cues for sequencing, pt able to STS with SBA. Ambulation x80' with RW, PT instruction for asc/desc 1 stair with good pt tolerance. Rec that pt utilize RW at d/c, pt's son given information for [facility]. Also, rec that pt utilize lifeline at all times and place BSC over toilet with hand rails. Long discussion with pt and son regarding recommendation for PT [facility] services, pt is unsure at this time if she is agreeable. No further PT visits planned at this time. Pt's son reports that family is available to check in on pt on a regular basis. Physical Therapy Goals 1: pt to complete transfers with SBA 2: pt to complete bed mobility with Anjelica 3: Pt to ambulate 80' with RW and SBA 4: Pt to asc/desc 2 stairs with railing and SBA/CGA Patient's Goals
--- NOTE | 2018-05-09 10:33 | NUR ---
PHYSICAL THERAPY INFORMATION TRANSFER SHEET BED MOBILITY: Minimum Assistance 1 person assist TRANSFERS: Standby Assistance GAIT: 80 ' with RW and Standby Assistance Weightbearing Status: Weight bearing as juanita STAIRS: 1 with Standby Assistance CGA. EXERCISES: Verbalizes Needs: Yes Understands Directions Yes Cooperative: Yes Family Teaching: Yes Physical Therapy Comment:
== END 2018-05-09 10:38 | disposition home or self-care (01) ==
LOC: ER 22:01
DX: M25.561 Pain in right knee (principal)
CPT/HCPCS: 36415; 73564; 81001; 82550; 84550; 85025; 85610; 85651; 96360; 97116; 97161; 97530; 99284; A9270; J7030; J7512; 82040; 82247; 82310; 82374; 82435; 82565; 82947; 84075; 84132; 84155; 84295; 84450; 84460; 84520

== ENCOUNTER 2018-08-02 08:56 | Outpatient (RCR) | payer MEDICARE, OTHER ==
[2016-09-02 13:57] VITALS: Wt 72.1 kg
[~2018-08-02 08:56] MED LIST changes: +ALB6.7R INH; +GLIM4TAB50 PO
[2018-08-02 09:09] VITALS: BP 147/65
[2018-08-02 09:40] VITALS: BP 147/65
[2018-08-02 09:47] LABS: PLATELET COUNT, AUTOMATED 180 K/uL (150-450)
--- NOTE | 2018-08-02 19:43 | ONCOLOGY FOLLOW UP NOTE ---
EVENT DATE: August 02, 2018 DIAGNOSES 1. Stage I left breast cancer. 2. Atrial fibrillation. 3. Hypertension. 4. Gout. 5. History of deep vein thrombosis of right lower extremity times two. 6. Osteopenia. 7. Vitamin D deficiency. CHIEF COMPLAINT Patient is here today for followup of her left breast cancer. ONCOLOGY HISTORY Patient is an 83-year-old female who was found to have an abnormal mammogram during her annual screening mammography. Patient had left breast lumpectomy and sentinel node biopsy done on February 16, 2015. 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 Four lymph nodes came back negative for metastasis. Lymphovascular invasion not observed. Margins were negative. ER positive 98.4%, NV positive 97.8%. HER2/laurent negative by immunohistochemistry and FISH. Ki-67 was 0.4%. Tumor was staged as stage IA (pT1b pN0 cM0). Patient refused adjuvant radiation therapy. She started adjuvant hormonal therapy with LETROZOLE 2.5 mg in March 2015. Patient stopped LETROZOLE in July 2015 because of the development of allergic skin rash, felt to be due to medications. Patient started anastrozole 1 mg daily on December 24, 2015, as her insurance will not cover Aromasin. Patient tried LETROZOLE, but with the same problem of skin reaction. Patient is not a candidate for tamoxifen because of her blood clotting problem in the past. HISTORY OF PRESENT ILLNESS Patient is here today for followup of her left breast cancer. She is doing fine currently. Apart from having cough with occasional phlegm, pain in her right knee, and easy bruising from her blood thinner, patient does not have other any problem. PAST MEDICAL HISTORY 1. Atrial fibrillation. 2. History of DVT of right lower extremity times two. 3. History of congestive heart failure. 4. History of diabetes mellitus. 5. Gout. 6. Hypertension. PAST SURGICAL HISTORY 1. Surgery for fasciitis in 2004. 2. Tonsillectomy. 3. Hysterectomy with intact ovaries for fibroids. 4. Surgery for broken right hip. SOCIAL HISTORY The patient is a . She has two daughters and two sons. She is a homemaker. Denies any abuse of tobacco, alcohol, or drugs. FAMILY HISTORY Mother had laryngeal cancer at the age of 74. CURRENT MEDICATIONS 1. Fish oil 500 mg daily. 2. Biotin 1 mg daily. 3. Warfarin 2 mg Sunday//Sunday. 4. Allopurinol 300 mg daily. 5. NovoLog insulin 2 units subcutaneously at lunch. 6. Vitamin D3 1000 units daily. 7. Vitamin B12 1000 mcg daily. 8. Protonix 40 mg daily. 9. Amlodipine (Norvasc) 10 mg daily. 11. Coumadin 3 mg Sunday/Sunday/Sunday/Sunday; so she is taking 3 mg for four days per week and 2 mg for three days. 12. Lisinopril 10 mg daily. 13. Insulin NovoLog 5 units subcutaneously every morning. 14. Lantus insulin 3 units subcutaneously at bedtime. 15. Amaryl 4 mg daily. 16. Lasix 20 mg daily. 17. Xalatan 0.005 % eye drops each eye at bedtime. 18. Dulcolax 10 mg suppository p.r.n. ALLERGIES 1. KEFLEX. 2. SITAGLIPTIN. REVIEW OF SYSTEMS CONSTITUTIONAL: No appetite or weight change. No fever, chills, or sweating. No recent infection. HEENT: Ears: No tinnitus or hearing problem. Nose: No nasal discharge or epistaxis. Throat: No sore throat or mouth ulcers. Eyes: No diplopia or visual changes. RESPIRATORY: No shortness of breath. Patient has some cough with occasional phlegm. No hemoptysis. CARDIOVASCULAR: No chest pain, orthopnea, or paroxysmal nocturnal dyspnea (PND). No edema. No palpitations. GASTROINTESTINAL: No nausea or vomiting. No diarrhea or constipation. No change in bowel movements. No heartburn or swallowing difficulties. No abdominal pain. No jaundice. No hematemesis, melena, or rectal bleeding. GENITOURINARY: No hematuria or dysuria. MUSCULOSKELETAL: She has pain in her right knee. NEUROLOGIC: No tingling or numbness in the hands or feet. No headaches or convulsions. HEMATOLOGIC/LYMPHATIC: She bruises easily. No weakness or fatigue. No enlarged lymph nodes. SKIN: No skin rash or lumps. PSYCHIATRIC: No anxiety or depression. PHYSICAL EXAMINATION GENERAL: Looks stable. Well developed, well nourished, and in no acute distress. VITAL SIGNS: Blood pressure 147/65, pulse 85 per minute, respirations 16 per minute, temperature 97.6, pulse ox 93% on room air. HEENT: Head: Atraumatic. No sinus tenderness to palpation. Eyes: No icterus or conjunctivitis. Mouth and Throat: No oral thrush or mucositis. NECK: Supple. No cervical or supraclavicular lymphadenopathy. LUNGS: Clear to auscultation and percussion bilaterally. HEART: Regular rate and rhythm. No gallops, murmurs, clicks, or rubs. ABDOMEN: Soft and lax. No tenderness. No hepatosplenomegaly. No masses. EXTREMITIES: No cyanosis, clubbing, or edema. LYMPHATICS: No peripheral lymphadenopathy. NEUROLOGIC: Conscious, alert, and oriented times three. No focal motor or sensory deficits. PSYCHIATRIC: Mood and affect appear normal. SKIN: No skin rash, bruise, or purpuric eruption. DIAGNOSTIC DATA CBC showed white count 4.9, hemoglobin 13.9, hematocrit 42.2, platelets 180,000. Chem panel and CA27.29 are pending. ASSESSMENT 1. Stage IA (pT1 pN0 cM0) left breast cancer, status post lumpectomy and sentinel lymph node biopsy done February 16, 2015, for 0.5 cm invasive ductal carcinoma grade 2/3 with negative margins. Four lymph nodes were negative for metastasis. ER/NV positive, HER2/laurent negative. Ki-67 was 0.4%. Patient declined adjuvant radiation therapy. She started adjuvant hormonal therapy with LETROZOLE 2.5 mg on March 25, 2015, which was stopped June 18, 2015, because of the development of severe rash and severe itching. Her insurance did not cover for Aromasin, and copayment was too high for her, so the patient started treatment with ANASTROZOLE December 24, 2015, but she stopped the treatment because of the development of a skin rash. We tried to get Aromasin by the floor scrubber, but unfortunately, the patient was not eligible, and she is currently not receiving any adjuvant hormonal therapy. She is also a candidate for the use of Coumadin because of her history of blood clotting twice in the past. She is doing fine currently without any adjuvant hormonal therapy. I am planning to continue followup. I will see her again in six months with CBC, chemistry panel, and CA27.29. 2. Atrial fibrillation, on Coumadin. 3. Hypertension, on treatment. 4. Gout, on allopurinol. 5. History of deep venous thrombosis right lower extremity times two. She is currently on Coumadin. 6. Osteopenia with T score -1.8. Currently on vitamin D and calcium supplement. 7. Vitamin D deficiency, on vitamin D supplement 3000 units daily. PLAN 1. Continue followup. 2. Continue vitamin D 3000 units daily. 3. Patient to return in six months with CBC, chem panel, and CA27.29. 4. Patient to contact us for any new concerns or complaints. LAURAD
== END 2018-09-04 15:40 | disposition home or self-care (01) ==
LOC: ONC 08:56
PROVIDERS: ATTEND Internal Medicine Hematology
DX: Z85.3 Personal history of malignant neoplasm of breast (principal); I48.91 Unspecified atrial fibrillation; Z79.01 Long term (current) use of anticoagulants; I10 Essential (primary) hypertension; Z79.899 Other long term (current) drug therapy; M10.9 Gout, unspecified; Z86.718 Personal history of other venous thrombosis and embolism; M85.80 Other specified disorders of bone density and structure, unspecified site; E55.9 Vitamin D deficiency, unspecified
CPT/HCPCS: 36415; 85025; 86300; G0463; 82040; 82247; 82310; 82374; 82435; 82565; 82947; 84075; 84132; 84155; 84295; 84450; 84460; 84520; 99212